=== PATIENT | female | born 1970 | race Caucasian/White ===

== ENCOUNTER 2017-03-02 07:39 | Emergency (ER) | payer OTHER ==
[~2017-03-02] VITALS: Ht 157.4 cm; Wt 99.8 kg
[~2017-03-02 07:39] MED LIST: ALPRAZOLAM0.5 MG PO; AMOXICILLIN500 M1 PO; AMOXICILLIN500 MG PO; ASTELIN NASAL S30 ML NAS; Amitriptyline H10 MG PO; BACLOFEN10 MG PO; BACTRIM DS 8001 TA1 PO; CATAFLAM50 MG PO; CELEXA20 MG PO; CENTRUM1 TAB PO; CIPRODEX 0.3%-7.5 ML OT; CITALOPRAM20 MG PO; CLARITIN10 MG PO; COZAAR50 MG PO; FLEXERIL10 MG PO; FLONASE 0.05% 121 EA NAS; HYZAAR 50/12.5M1 TAB PO; KEFLEX500 MG PO; LEVOTHYROXIN0.025 M1 PO; LIPITOR20 MG PO; LOSARTAN/HCT TAB 50-; LYRICA50 MG PO; MOTRIN800 MG PO; NORCO 5-325 TA1 EACH PO; OXYCODONE5 M1 PO; PERCOCET 325 MG1 TA2 PO; PRAVACHOL40 MG PO; PRAVASTATIN SOD40 MG PO; PREDNICOT20 MG PO; PROPRANOLOL PO; ROBAXIN500 MG PO; SYNTHROID,LEVO25 MCG PO; TESSALON PERLE100 M1 PO; VICODIN 5/500 505 MG PO; XANAX0.5 MG PO; ZYRTEC10 MG PO; [UNRECOGNIZED DRUG - OTHER] NAS
[2017-03-02 08:43] LABS: BASO # 0.1 10*3/uL (0.0-0.1); BASO % 0.4 % (0.0-1.0); EOS # 0.2 10*3/uL (0.0-0.4); EOS % 1.6 % (1.0-4.0); HEMATOCRIT 41.7 % (37.0-47.0); HEMOGLOBIN 14.2 g/dl (12.0-16.0); IG # 0.1 10*3/uL (0.0-0.1); LYMPH # 1.9 10*3/uL (1.3-4.4); LYMPH % 13.8 % (27.0-41.0); MEAN CELL VOLUME 85.6 fl (81.0-99.0); MEAN CORPUSCULAR HGB 29.2 pg (27.0-31.0); MEAN CORPUSCULAR HGB CONC 34.1 g/dl (33.0-37.0); MEAN PLATELET VOLUME 9.7 fl (9.6-12.3); MONO # 1.1 10*3/uL (0.1-1.0); MONO % 7.8 % (3.0-9.0); NEUT # 10.6 10*3/uL (2.3-7.9); NEUT % 75.9 % (47.0-73.0); PLATELET COUNT AUTOMATED 341 10*3/uL (130-400); RED BLOOD COUNT 4.87 10*6/uL (4.10-5.10); RED CELL DISTRI WIDTH 12.9 % (0-14.5)
[2017-03-02 08:56] LABS: BILIRUBIN NEGATIVE (NEGATIVE); BLOOD 3+ (NEGATIVE); CLARITY CLOUDY (CLEAR); COLOR YELLOW (YELLOW); GLUCOSE NEGATIVE (NEGATIVE); KETONE NEGATIVE (NEGATIVE); LEUKO ESTERASE TRACE (NEGATIVE); NITRITE NEGATIVE (NEGATIVE); PROTEIN 1+ (NEGATIVE); UROBILINOGEN 0.2 E.U./dl (0.2-1.0)
[2017-03-02 08:58] LABS: ALBUMIN 3.5 gm/dl (3.1-4.5); ALKALINE PHOSPHATASE 118 U/L (45-117); BILIRUBIN, TOTAL 0.5 mg/dl (0.2-1.0); BUN 14 mg/dl (7-24); CARBON DIOXIDE 27 mmol/L (21-32); CHLORIDE 104 mmol/L (98-107); EST GLOM FILT AFRICAN AMERICAN > 60 ml/min; GLUCOSE 109 mg/dL (65-99); POTASSIUM 3.6 mmol/L (3.5-5.1); SGOT/AST 21 IU/L (3-35); SGPT/ALT 23 U/L (12-78); SODIUM 141 mmol/L (136-145); TOTAL PROTEIN 7.4 gm/dL (6.4-8.2)
[2017-03-02 09:05] LABS: BACTERIA 3+; EPITHELIAL CELLS 15-20; RBC TNTC rbc/hpf (0-2)
[2017-03-02 09:07] LABS: URINE REFLEX COMMENT YES (NO)
[2017-03-02 12:09] LABS: BILIRUBIN NEGATIVE (NEGATIVE); BLOOD NEGATIVE (NEGATIVE); CLARITY SL CLOUDY (CLEAR); COLOR YELLOW (YELLOW); GLUCOSE NEGATIVE (NEGATIVE); KETONE NEGATIVE (NEGATIVE); LEUKO ESTERASE NEGATIVE (NEGATIVE); NITRITE NEGATIVE (NEGATIVE); PH 7.5 (5.0-9.0); PROTEIN TRACE (NEGATIVE); SPECIFIC GRAVITY <= 1.005 (1.005-1.030); UROBILINOGEN 0.2 E.U./dl (0.2-1.0)
[2017-03-02 12:13] LABS: BACTERIA TRACE; EPITHELIAL CELLS 0-2; RBC 0-2 rbc/hpf (0-2); WBC 0-2 wbc/hpf (0-5)
[2017-03-02 12:14] LABS: URINE REFLEX COMMENT NO (NO)
[2017-03-02] MEDS ORDERED: ANAPROX DS550 MG PO (16:01)
== END 2017-03-02 16:06 | disposition home or self-care (01) ==
LOC: ED 07:39
PROVIDERS: Emergency Medicine
DX: N93.9 Abnormal uterine and vaginal bleeding, unspecified (principal); N84.0 Polyp of corpus uteri; R10.2 Pelvic and perineal pain; I10 Essential (primary) hypertension; E78.5 Hyperlipidemia, unspecified; E03.9 Hypothyroidism, unspecified; Z79.899 Other long term (current) drug therapy; Z86.73 Personal history of transient ischemic attack (TIA), and cerebral infarction without residual deficits

== ENCOUNTER 2018-01-10 19:19 | Emergency (ER) | payer OTHER ==
[~2018-01-10] VITALS: Wt 81.6 kg
[~2018-01-10 19:19] MED LIST changes: +ANAPROX DS550 MG PO
[2018-01-10] MEDS ORDERED: ANAPROX DS550 MG PO (20:16)
[2018-01-10] MEDS ORDERED: NORCO 5-325 TA1 EACH PO (20:17)
== END 2018-01-11 00:35 | disposition home or self-care (01) ==
LOC: ED 19:19
DX: M54.2 Cervicalgia (principal); M79.601 Pain in right arm; M53.3 Sacrococcygeal disorders, not elsewhere classified; M25.511 Pain in right shoulder; M25.531 Pain in right wrist; M25.521 Pain in right elbow; Z79.899 Other long term (current) drug therapy; Z86.73 Personal history of transient ischemic attack (TIA), and cerebral infarction without residual deficits; W01.0XXA Fall on same level from slipping, tripping and stumbling without subsequent striking against object, initial encounter; Y93.89 Activity, other specified; Y92.099 Unspecified place in other non-institutional residence as the place of occurrence of the external cause; Y99.9 Unspecified external cause status

== ENCOUNTER 2019-04-26 19:28 | Emergency (ER) | payer OTHER ==
[~2019-04-26] VITALS: Ht 157.4 cm; Wt 102.1 kg
== END 2019-04-26 20:25 | disposition home or self-care (01) ==
LOC: ED 19:28
DX: S05.02XA Injury of conjunctiva and corneal abrasion without foreign body, left eye, initial encounter (principal); I10 Essential (primary) hypertension; E03.9 Hypothyroidism, unspecified; E78.5 Hyperlipidemia, unspecified; Z79.899 Other long term (current) drug therapy; Z86.73 Personal history of transient ischemic attack (TIA), and cerebral infarction without residual deficits; X58.XXXA Exposure to other specified factors, initial encounter; Y93.89 Activity, other specified; Y92.89 Other specified places as the place of occurrence of the external cause; Y99.8 Other external cause status

== ENCOUNTER 2019-07-25 17:36 | Emergency (ER) | payer OTHER ==
[~2019-07-25] VITALS: Ht 157.4 cm; Wt 110.7 kg
[2019-07-25 18:56] LABS: BASO # 0.1 10*3/uL (0.0-0.1); BASO % 0.7 % (0.0-1.0); EOS # 0.3 10*3/uL (0.0-0.4); EOS % 2.8 % (1.0-4.0); HEMATOCRIT 44.7 % (37.0-47.0); HEMOGLOBIN 14.9 g/dl (12.0-16.0); LYMPH % 31.4 % (27.0-41.0); MEAN CELL VOLUME 85.8 fl (81.0-99.0); MEAN CORPUSCULAR HGB 28.6 pg (27.0-31.0); MEAN CORPUSCULAR HGB CONC 33.3 g/dl (33.0-37.0); MEAN PLATELET VOLUME 9.9 fl (9.6-12.3); MONO # 0.9 10*3/uL (0.1-1.0); MONO % 9.1 % (3.0-9.0); NEUT # 5.3 10*3/uL (2.3-7.9); NEUT % 55.8 % (47.0-73.0); PLATELET COUNT AUTOMATED 393 10*3/uL (130-400); RED BLOOD COUNT 5.21 10*6/uL (4.10-5.10); RED CELL DISTRI WIDTH 12.7 % (0-14.5); WHITE BLOOD COUNT 9.6 10*3/uL (4.8-10.8)
[2019-07-25 19:13] LABS: ALBUMIN 3.5 gm/dl (3.1-4.5); ALKALINE PHOSPHATASE 165 U/L (45-117); BUN 14 mg/dl (7-24); CHLORIDE 104 mmol/L (98-107); POTASSIUM 3.1 mmol/L (3.5-5.1); SGOT/AST 17 IU/L (3-35); SGPT/ALT 31 U/L (12-78); SODIUM 140 mmol/L (136-145); TOTAL PROTEIN 7.8 gm/dL (6.4-8.2)
[2019-07-25 20:48] LABS: BILIRUBIN NEGATIVE (NEGATIVE); BLOOD NEGATIVE (NEGATIVE); CLARITY CLEAR (CLEAR); COLOR YELLOW (YELLOW); GLUCOSE NEGATIVE (NEGATIVE); KETONE NEGATIVE (NEGATIVE); LEUKO ESTERASE TRACE (NEGATIVE); NITRITE NEGATIVE (NEGATIVE); PH 6.5 (5.0-9.0); SPECIFIC GRAVITY 1.015 (1.005-1.030); UROBILINOGEN 0.2 E.U./dl (0.2-1.0)
[2019-07-25 20:55] LABS: BACTERIA 2+; RBC 0-2 rbc/hpf (0-2)
== END 2019-07-25 21:43 | disposition home or self-care (01) ==
LOC: ED 17:36
PROVIDERS: Nurse Practitioner
DX: E87.6 Hypokalemia (principal); R10.31 Right lower quadrant pain; Z79.899 Other long term (current) drug therapy